=== PATIENT | male | born 1950 | race Caucasian/White ===

== ENCOUNTER 2021-12-23 08:00 | Outpatient (RCR) | payer MEDICARE, SELFPAY | END 2022-03-17 14:31 | disposition home or self-care (01) | PROVIDERS: Visit Provider Orthopaedic Surgery | DX: M25.561 Pain in right knee (principal); R26.9 Unspecified abnormalities of gait and mobility; Z51.89 Encounter for other specified aftercare | CPT/HCPCS: 97110; 97162 ==

== ENCOUNTER 2022-03-20 15:21 | Observation (INO) | payer MEDICARE, SELFPAY ==
[2022-03-20] VITALS (9 sets, daily range): BP systolic 122–134; BP diastolic 60–76; PULSE 69–89; RESP 16–22; TEMP 36.1–36.8; O2SAT 95–99; BMI 29.2; BMI 29.7
--- NOTE | 2022-03-20 16:03 | ED.GENADULT ---
HPI - General Adult General Time Seen by Provider: 16:04 Date Seen: 03/20/22 Chief complaint: Syncope/Fainted Stated complaint: fainting after bowel movment Time Seen by Provider: 03/20/22 15:37 Source: patient and RN notes reviewed Mode of arrival: ambulatory Limitations: no limitations History of Present Illness HPI narrative: Patient is a 71-year-old male that became very faint 10 nearly passed out while on the toilet having a bowel movement today. He is about 2 weeks postoperative left total knee arthroplasty. He is just taking Tylenol ibuprofen for pain. He is using aspirin for prophylaxis. He endorses about 6 months ago he was defecating and straining and had a similar episode. Today he was not straining however. Reports his hemoglobin is low from his knee surgery. He denies any sense of any chest pain with this, no difficulty breathing or shortness of breath. He did not feel any sense of irregular heartbeat or palpitations, not seen as far as arrhythmia. He had no prior abdominal pain. He did not actually pass out all the way, did not fall, did not hit his head, did not injure himself. He does have some ongoing left knee pain and complains of some pain along the medial/upper thigh area. He has had no fevers or chills, no respiratory symptoms. His admit she was concerned maybe about a blood clot in his leg. He has had no diagnosed prior cardiac history, no chronic respiratory issues. He states there is no family history of any cardiac issues. Related Data Home Medications Medication Instructions Recorded Confirmed atenolol 50 mg tablet mg 03/20/22 atorvastatin 40 mg tablet mg 03/20/22 celecoxib 200 mg capsule mg 03/20/22 hydrochlorothiazide 25 mg tablet mg 03/20/22 hydroxyzine pamoate 25 mg capsule mg 03/20/22 omeprazole 20 mg capsule,delayed mg 03/20/22 release Allergies Allergy/AdvReac Type Severity Reaction Status Date / Time Unable to Assess Allergy Verified 03/20/22 15:08 Review of Systems Status of ROS: Reports: 10 or more systems reviewed and unremarkable except as noted in History and below PFSH PFSH Social History Non-prescribed substance use: denies use service: No Exam Const: Vital Signs, click to edit/add: Vital Signs - 24 hr 03/20/22 15:31 03/20/22 16:25 03/20/22 17:30 Temperature 97.0 F L Pulse Rate [Right Pulse Oximeter] 69 71 Respiratory Rate 18 22 Blood Pressure [Ri t Upper Arm] 125/67 122/73 Pulse Oximetry 99 98 99 Oxygen Delivery Me thod Room Air Room Air 03/20/22 18:00 03/20/22 18:30 03/20/22 19:00 Temperature Pulse Rate [Right Pulse Oximeter] 74 87 89 Respiratory Rate 20 20 18 Blood Pressure [Ri t Upper Arm] 127/76 134/69 124/62 Pulse Oximetry 97 98 96 Oxygen Delivery Me thod Documenting provider has reviewed patient's vital signs: yes Common normals: no apparent distress, average body habitus, oriented x3, no limitations, healthy appearing, alert and well nourished General appearance: cooperative, comfortable and well kempt HENMT: Common normals: normocephalic, head/scalp atraumatic, hearing grossly normal bilaterally, external ears normal, external nose normal, nasal mucous membranes and turbinates normal, moist oral mucous membranes, oropharynx normal, dentition normal and gingiva normal Head and scalp: normocephalic and atraumatic Nose: external nose normal and nasal mucous membranes and turbinates normal External ear: external ears normal Eye: Common normals: PERRL, EOMs intact bilaterally, conjunctivae normal and no scleral icterus Conjunctiva: conjunctiva(e) normal Pupil: PERRL Neck & C-Spine: Common normals: full ROM, no lymphadenopathy, supple, no meningeal signs, no JVD and thyroid normal Thyroid: thyroid normal Resp: Common normals: normal respiratory effort, no retractions, no use of accessory muscles and clear to auscultation bilaterally Auscultation: clear to auscultation bilaterally Cardio: Common normals: no JVD, regular rate, regular rhythm, S1 normal heart sound, S2 normal heart sound, no gallops, no clicks and no murmurs Rate: regular rate Rhythm: regular rhythm Heart sounds: S1 normal and S2 normal GI: Common normals: Normal to inspection, nondistended, normoactive bowel sounds present, soft to palpation, non-tender, no hepatosplenomegaly and no masses Palpation: soft and no hepatosplenomegaly Extremity: Other: He has no right lower extremity symptoms, no edema, no calf tenderness. He has some dependent bruising seen on his left leg, some mild edema, questionable Homans sign. He is somewhat tender when I palpate along the medial left upper thigh. Neurovascular is intact of both lower extremities however. Neuro: Common normals: oriented x3, CN's II-XII intact bilaterally, moves all extremities, no focal motor deficits and no sensory deficits noted Sensorium/orientation: alert Meningeal signs: no meningeal signs Speech: speech normal Psych: Appearance: well kempt Course Course Hospital Course: His initial EKG obtained by nursing staff on arrival is reassuring. Will have my cardiac monitoring and pulse oximetry to rule out arrhythmia or hypoxia while here. He is going to get an ultrasound of his left lower extremity to rule out DVT. We will do appropriate labs and certainly a reassure them that we will be checking hemoglobin. Reviewed with he and his that in the differential is vagovagal syncope, certainly could be thromboembolic disease. Is doubtful that this is acute coronary syndrome. Arrhythmias possible 2 and have reviewed with them that if he has ongoing issues in the future, may need further workup with JULIAN patch her ongoing cardiac monitoring. Reviewed that sometimes arrhythmias can be difficult to capture. Will certainly watch while he is here. I agree with his , most pressing thing is to actually rule out thromboembolic disease. He does have a DVT in this left lower extremity, would proceed with chest CT PE protocol. Reevaluation(s) Reevaluation #1: Reviewed with patient and his that his sodium is low, 123. On February 10 it was normal at 135. His creatinine was normal at 0.75. Preoperative hemoglobin was 12.4. He did his surgery outpatient at [facility]. He states when he followed up in the checks hemoglobin postoperatively was in the 9 range. Reviewed with him that it is improving and coming up. I have subsequently spoken with our hospitalist Dr. Rodriguez and she will be assuming care. We are waiting his COVID test to be done. Did start maintenance normal saline to slowly correct his sodium. Time: 17:46 Vital Signs Vital signs: Initial Vital Signs Temperature 97.0 F L 03/20/22 15:31 Temperature Source Temporal Artery Scan 03/20/22 15:31 Pulse Rate 69 03/20/22 15:31 Respiratory Rate 18 03/20/22 15:31 Blood Pressure 125/67 03/20/22 15:31 Blood Pressure Mean 86 03/20/22 15:31 Blood Pressure Position Sitting 03/20/22 15:31 Pulse Oximetry 99 03/20/22 15:31 Oxygen Delivery Method 03/20/22 15:31 Vital Signs Temperature 97.0 F L 03/20/22 15:31 Pulse Rate 69 03/20/22 15:31 Respiratory Rate 18 03/20/22 15:31 Blood Pressure 125/67 03/20/22 15:31 Pulse Oximetry 99 03/20/22 15:31 Oxygen Delivery Method 03/20/22 15:31 Temperature 97.0 F L 03/20/22 15:31 Pulse Rate 89 03/20/22 19:00 Respiratory Rate 18 03/20/22 19:00 Blood Pressure 124/62 03/20/22 19:00 Pulse Oximetry 96 03/20/22 19:00 Oxygen Delivery Method 03/20/22 17:30 Medical Decision Making Lab Data Lab results reviewed: Yes I reviewed the patient's lab results Labs: Lab Results 03/20/22 03/20/22 03/20/22 Range/Units 16:25 16:25 16:25 WBC 8.41 (4.50-11.00) K/uL RBC 3.54 L (4.30-5.90) m/uL Hgb 10.6 L (13.5-17.5) gm/dL Hct 30.7 L (37.0-53.0) % MCV 87 (80-100) fL MCH 30 (26-34) pg MCHC 35 (32-36) gm/dL RDW Coeff of Jacek 17.0 H (11.5-15.5) % Plt Count 305 (140-440) K/uL Neut % (Auto) 78.0 H (42.0-72.0) % Lymph % (Auto) 10.3 L (20-44) % [place] % (Auto) 9.2 (0.0-11.0) % Eos % (Auto) 1.7 (0.0-7.0) % Baso % (Auto) 0.4 (0.0-3.0) % Neut # (Auto) 6.60 (1.7-7.0) K/uL Lymph # (Auto) 0.90 (0.90-2.90) K/uL [place] # (Auto) 0.80 (0.00-0.90) K/UL Eos # (Auto) 0.14 (0.00-0.50) K/uL Baso # (Auto) 0.03 (0.00-0.30) K/uL Abs Immat Gran (auto) 0.03 (0.00-0.30) K/uL Imm/Tot Granulo (auto) 0.4 % D-Dimer Quant (PE/DVT) 7.03 H (0.00-0.50) ug/ml Sodium 123 L* (135-149) mmol/L Potassium 4.3 (3.6-5.1) mmol/L Chloride 90 L (96-114) mmol/L Carbon Dioxide 25 (20-32) mmol/L BUN 22 (7-30) mg/dL Creatinine 0.7 (0.5-1.5) mg/dL Estimated Creat Clear 66.77 Estimated GFR 98 ml/min Glucose 109 (60-115) mg/dL Lactate (0.5-1.9) mmol/L Calcium 8.7 (8.4-10.6) mg/dL Total Bilirubin 0.7 (0.1-1.5) mg/dL AST 21 (12-35) U/L ALT 16 (4-50) U/L Alkaline Phosphatase 79 (40-150) U/L NT-Pro-B Natriuret Pep 169 H (0-125) PG/mL Total Protein 6.6 (6.0-8.3) g/dL Albumin 4.1 (3.3-5.0) g/dL SARS-CoV-2 (PCR) (Negative) POC Troponin I (0.01-0.04) ng/ml 03/20/22 03/20/22 03/20/22 Range/Units 16:25 16:25 17:40 WBC (4.50-11.00) K/uL RBC (4.30-5.90) m/uL Hgb (13.5-17.5) gm/dL Hct (37.0-53.0) % MCV (80-100) fL MCH (26-34) pg MCHC (32-36) gm/dL RDW Coeff of Jacek (11.5-15.5) % Plt Count (140-440) K/uL Neut % (Auto) (42.0-72.0) % Lymph % (Auto) (20-44) % [place] % (Auto) (0.0-11.0) % Eos % (Auto) (0.0-7.0) % Baso % (Auto) (0.0-3.0) % Neut # (Auto) (1.7-7.0) K/uL Lymph # (Auto) (0.90-2.90) K/uL [place] # (Auto) (0.00-0.90) K/UL Eos # (Auto) (0.00-0.50) K/uL Baso # (Auto) (0.00-0.30) K/uL Abs Immat Gran (auto) (0.00-0.30) K/uL Imm/Tot Granulo (auto) % D-Dimer Quant (PE/DVT) (0.00-0.50) ug/ml Sodium (135-149) mmol/L Potassium (3.6-5.1) mmol/L Chloride (96-114) mmol/L Carbon Dioxide (20-32) mmol/L BUN (7-30) mg/dL Creatinine (0.5-1.5) mg/dL Estimated Creat Clear Estimated GFR ml/min Glucose (60-115) mg/dL Lactate 0.9 (0.5-1.9) mmol/L Calcium (8.4-10.6) mg/dL Total Bilirubin (0.1-1.5) mg/dL AST (12-35) U/L ALT (4-50) U/L Alkaline Phosphatase (40-150) U/L NT-Pro-B Natriuret Pep (0-125) PG/mL Total Protein (6.0-8.3) g/dL Albumin (3.3-5.0) g/dL SARS-CoV-2 (PCR) Negative SARS-CoV-2 (Negative) POC Troponin I 0.01 (0.01-0.04) ng/ml Imaging Data Venous US: Attestation: I have reviewed the pertinent imaging results. Radiologist's impression: Patient: KATERIN PERAZA Facility:?[facility] Patient ID:?[id number] Site Patient ID:?[id number]. Site :?1950 Study:?US Extremity Left LEV-03/20/2022 4:57:19 PM Ordering Physician:Zeferino Null Final Report: INDICATION: LEFT LEG PAIN, RECENT TKA TECHNIQUE: Ultrasound venous duplex left lower extremity. COMPARISON: None. FINDINGS: The left common femoral, superficial femoral, deep femoral, popliteal, posterior tibial, and greater saphenous veins are fully compressible normal waveforms. The contralateral right common femoral vein is also compressible with normal waveform. No masses evident. IMPRESSION: Normal ultrasound of the left lower extremity veins. Dictated by: Luis Alfredo Perez MD @ 03/20/2022 17:02:58 (Electronic Signature) Chest x-ray: Attestation: I have reviewed the pertinent imaging results. Radiologist's impression: Patient: KATERIN PERAZA Facility:?[facility] Patient ID:?[id number] Site Patient ID:?[id number]. Site :?1950 Study:?XRay Chest PORTABLE-03/20/2022 5:25:35 PM Ordering Physician:?Marisela Null Final Report: INDICATION: Maintain. TECHNIQUE: Chest 1 views. COMPARISON: None. FINDINGS: Cardiovascular and mediastinum: Normal heart size. Prominent aortic arch shadow and rightward deviation of the trachea. Lungs and pleural spaces: The lungs are clear. No pleural effusion or pneumothorax. Bones and soft tissues: Degenerative changes of the spine and bilateral shoulders. IMPRESSION: No evidence of an acute pulmonary process. Prominent aortic arch shadow. This is likely secondary to technique; however, an aneurysm cannot be excluded. Right lower deviation of the trachea. A mediastinal mass/lymphadenopathy cannot be excluded. Consider CT with contrast for further evaluation of both findings. Dictated by Daniel Vasquez MD @ 03/20/2022 6:06:42 PM (Electronic Signature) CT scan - chest: Attestation: I have reviewed the pertinent imaging results. Radiologist's impression: Patient: KATERIN PERAZA Facility:?[facility] Patient ID:?[id number] Site Patient ID:?[id number]. Site :?1950 Study:?CT Chest w/ 75cc [id number]/3/2022 6:49:33 PM Ordering Physician:Zeferino Null Final Report: INDICATION: Abnormal chest x-ray. TECHNIQUE: CT chest was acquired with 75 mL Isovue 370 IV contrast. Coronal and sagittal reformats were generated. COMPARISON: Chest x-ray from 03/20/2022. FINDINGS: Thyroid: Unremarkable. Thoracic lymph nodes: No enlarged supraclavicular, mediastinal, hilar, or axillary lymph nodes. Mediastinum and esophagus: Prominent mediastinal fat anteriorly and along the right pericardial border. Heart and vasculature: The heart size is normal. Scattered coronary artery calcifications and atherosclerotic calcifications of the thoracic aorta. Normal caliber of the thoracic aorta, without aneurysm. Lungs: Several tiny nodules. Index lesions include: *Right apical nodule measures approximately 3 mm (3/15). *Left upper lobe nodule measures approximately 3 mm (3/27). *Left upper lobe nodule measures approximately 5 mm (3/39). Pleura: Unremarkable. Chest wall: An area of prominent fat density in the right upper back along the erector spinae musculature could be an intramuscular lipoma. Upper abdomen: The liver contains several well-circumscribed hypodensities, which are most suggestive of cysts. Surgically absent gallbladder. The included common bile duct is normal in caliber. Small amount of atherosclerotic calcifications in the visualized abdominal aorta and its branches. Bones: Mild multilevel degenerative changes of the thoracic spine. No aggressive appearing lytic or blastic lesions. IMPRESSION: 1. Abnormality on the chest x-ray likely corresponds to prominent mediastinal fat. No thoracic aortic aneurysm. 2. Several scattered pulmonary micronodules as above. SOCIETY GUIDELINES - SOLID NODULES: SINGLE LOW RISK - nodule less than 6 mm: No routine follow-up. - nodule 6-8 mm: CT at 6-12 months, then consider CT at 18-24 months. - nodule greater than 8 mm: Consider CT at 3 months, PET/CT or tissue sampling. SINGLE HIGH RISK - nodule less than 6 mm: Optional CT at 12 months. - nodule 6-8 mm: CT at 6-12 months, then CT at 18-24 months. - nodule greater than 8 mm: Consider CT at 3 months, PET/CT or tissue sampling. MULTIPLE LOW RISK - nodule less than 6 mm: No routine follow-up. - nodule 6-8 mm: CT at 3-6 months, then consider CT at 18-24 months. - nodule greater than 8 mm: CT at 3-6 months, then consider CT at 18-24 months. MULTIPLE HIGH RISK - nodule less than 6 mm: Optional CT at 12 months. - nodule 6-8 mm: CT at 3-6 months, then at 18-24 months. - nodule greater than 8 mm: CT at 3-6 months, then at 18-24 months. Please note that all CT scans at this facility use dose modulation, iterative reconstruction, and/or weight-based dosing when appropriate to reduce radiation dose to as low as reasonably achievable. Dictated by Neo Juarez MD @ 03/20/2022 7:13:37 PM (Electronic Signature) Note, did not have the opportunity to review patient's chest CT findings prior to transfer to the floor. ECG Data Attestation: I personally reviewed and interpreted this ECG as follows: (Full normal sinus rhythm, 65 beats per minute. No acute abnormality noted, QT corrected 395 milliseconds.) Prior ECG tracings: not available for review Critical Care Time Critical Care Time Critical Care Time: No Discharge Plan Discharge Clinical Impression: Status post left knee replacement, Pre-syncope, Acute hyponatremia Patient Disposition: Admitted As Inpatient Condition: Stable
--- NOTE | 2022-03-20 16:13 | CRLHL7_ITS ---
For Patients: As a result of the Cures Act, medical imaging exams and procedure reports are released immediately into your electronic medical record. You may view this report before your referring provider. If you have questions, please contact your health care provider. INDICATION: LEFT LEG PAIN, RECENT TKA TECHNIQUE: Ultrasound venous duplex left lower extremity. COMPARISON: None. FINDINGS: The left common femoral, superficial femoral, deep femoral, popliteal, posterior tibial, and greater saphenous veins are fully compressible normal waveforms. The contralateral right common femoral vein is also compressible with normal waveform. No masses evident. IMPRESSION: Normal ultrasound of the left lower extremity veins. Dictated by: Luis Alfredo Perez MD @ 03/20/2022 17:02:58 (Electronically Signed)
[2022-03-20 16:38] LABS: Lactate* 0.9 mmol/L (0.5-1.9)
[2022-03-20 16:40] LABS: Basophils Absolute Auto 0.03 K/uL (0.00-0.30); Basophils Percent Auto 0.4 % (0.0-3.0); Eosinophils Absolute Auto 0.14 K/uL (0.00-0.50); Eosinophils Percent Auto 1.7 % (0.0-7.0); Hematocrit 30.7 % (37.0-53.0); Hemoglobin* 10.6 gm/dL (13.5-17.5); Immature Granulocytes Abs Auto 0.03 K/uL (0.00-0.30); Immature Granulocytes Pct Auto 0.4 %; Lymphocytes Percent Auto 10.3 % (20-44); Mean Corpuscular HGB Conc 35 gm/dL (32-36); Mean Corpuscular Hemoglobin 30 pg (26-34); Mean Corpuscular Volume 87 fL (80-100); Monocytes Percent Auto 9.2 % (0.0-11.0); Platelet Count* 305 K/uL (140-440); Red Blood Count 3.54 m/uL (4.30-5.90); Slide Review Reflex No; White Blood Count* 8.41 K/uL (4.50-11.00)
[2022-03-20 16:45] LABS: Troponin, Point-of-Care* 0.01 ng/ml (0.01-0.04)
[2022-03-20 16:58] LABS: Albumin* 4.1 g/dL (3.3-5.0)
[2022-03-20 16:59] LABS: Chloride* 90 mmol/L (96-114); Potassium* 4.3 mmol/L (3.6-5.1)
[2022-03-20 17:01] LABS: Aspartate Amino Transferase* 21 U/L (12-35); Bilirubin Total* 0.7 mg/dL (0.1-1.5); Carbon Dioxide* 25 mmol/L (20-32); Creatinine* 0.7 mg/dL (0.5-1.5); Est. Creatinine Clearance* 66.77; Estimated Glomerular Filt Rate 98 ml/min
[2022-03-20 17:02] LABS: Alanine Aminotransferase* 16 U/L (4-50); Alkaline Phosphatase* 79 U/L (40-150); Blood Urea Nitrogen* 22 mg/dL (7-30); Calcium* 8.7 mg/dL (8.4-10.6); Glucose* 109 mg/dL (60-115); Total Protein* 6.6 g/dL (6.0-8.3)
[2022-03-20 17:03] LABS: Sodium* 123 mmol/L (135-149)
--- NOTE | 2022-03-20 17:05 | CRLHL7_ITS ---
For Patients: As a result of the Cures Act, medical imaging exams and procedure reports are released immediately into your electronic medical record. You may view this report before your referring provider. If you have questions, please contact your health care provider. INDICATION: Maintain. TECHNIQUE: Chest 1 views. COMPARISON: None. FINDINGS: Cardiovascular and mediastinum: Normal heart size. Prominent aortic arch shadow and rightward deviation of the trachea. Lungs and pleural spaces: The lungs are clear. No pleural effusion or pneumothorax. Bones and soft tissues: Degenerative changes of the spine and bilateral shoulders. IMPRESSION: No evidence of an acute pulmonary process. Prominent aortic arch shadow. This is likely secondary to technique; however, an aneurysm cannot be excluded. Right lower deviation of the trachea. A mediastinal mass/lymphadenopathy cannot be excluded. Consider CT with contrast for further evaluation of both findings. Dictated by Daniel Vasquez MD @ 03/20/2022 6:06:42 PM (Electronically Signed)
[2022-03-20 17:10] LABS: D Dimer Quantitative* 7.03 ug/ml (0.00-0.50)
[2022-03-20 17:11] LABS: NT Pro B Type NatriureticPept* 169 PG/mL (0-125)
[2022-03-20] MEDS: 0.9 % SODIUM CH + KCL 20 mEq/L 1,000 ML 100 ML IV (17:30)
--- NOTE | 2022-03-20 18:10 | CRLHL7_ITS ---
For Patients: As a result of the 21st Century Cures Act, medical imaging exams and procedure reports are released immediately into your electronic medical record. You may view this report before your referring provider. If you have questions, please contact your health care provider. INDICATION: Abnormal chest x-ray. TECHNIQUE: CT chest was acquired with 75 mL Isovue 370 IV contrast. Coronal and sagittal reformats were generated. COMPARISON: Chest x-ray from 03/20/2022. FINDINGS: Thyroid: Unremarkable. Thoracic lymph nodes: No enlarged supraclavicular, mediastinal, hilar, or axillary lymph nodes. Mediastinum and esophagus: Prominent mediastinal fat anteriorly and along the right pericardial border. Heart and vasculature: The heart size is normal. Scattered coronary artery calcifications and atherosclerotic calcifications of the thoracic aorta. Normal caliber of the thoracic aorta, without aneurysm. Lungs: Several tiny nodules. Index lesions include: *Right apical nodule measures approximately 3 mm (3/15). *Left upper lobe nodule measures approximately 3 mm (3/27). *Left upper lobe nodule measures approximately 5 mm (3/39). Pleura: Unremarkable. Chest wall: An area of prominent fat density in the right upper back along the erector spinae musculature could be an intramuscular lipoma. Upper abdomen: The liver contains several well-circumscribed hypodensities, which are most suggestive of cysts. Surgically absent gallbladder. The included common bile duct is normal in caliber. Small amount of atherosclerotic calcifications in the visualized abdominal aorta and its branches. Bones: Mild multilevel degenerative changes of the thoracic spine. No aggressive appearing lytic or blastic lesions. IMPRESSION: 1. Abnormality on the chest x-ray likely corresponds to prominent mediastinal fat. No thoracic aortic aneurysm. 2. Several scattered pulmonary micronodules as above. SOCIETY GUIDELINES - SOLID NODULES: SINGLE LOW RISK - nodule less than 6 mm: No routine follow-up. - nodule 6-8 mm: CT at 6-12 months, then consider CT at 18-24 months. - nodule greater than 8 mm: Consider CT at 3 months, PET/CT or tissue sampling. SINGLE HIGH RISK - nodule less than 6 mm: Optional CT at 12 months. - nodule 6-8 mm: CT at 6-12 months, then CT at 18-24 months. - nodule greater than 8 mm: Consider CT at 3 months, PET/CT or tissue sampling. MULTIPLE LOW RISK - nodule less than 6 mm: No routine follow-up. - nodule 6-8 mm: CT at 3-6 months, then consider CT at 18-24 months. - nodule greater than 8 mm: CT at 3-6 months, then consider CT at 18-24 months. MULTIPLE HIGH RISK - nodule less than 6 mm: Optional CT at 12 months. - nodule 6-8 mm: CT at 3-6 months, then at 18-24 months. - nodule greater than 8 mm: CT at 3-6 months, then at 18-24 months. Please note that all CT scans at this facility use dose modulation, iterative reconstruction, and/or weight-based dosing when appropriate to reduce radiation dose to as low as reasonably achievable. Dictated by Neo Juarez MD @ 03/20/2022 7:13:37 PM (Electronically Signed)
[2022-03-20 18:20] LABS: SARS PCR* Negative SARS-CoV-2 (Negative)
--- NOTE | 2022-03-20 19:16 | W.PC.EDHO ---
Primary Language: Preferred Language: Orientation Status: [] Alert & Oriented [] Slight Confusion [] Known Dx Dementia Transfers By: [] Assist of 1 [] Assist of 2 [] Lift Active Medications Generic Name Dose Route Start Last Admin Trade Name Freq PRN Reason Stop Dose Admin Potassium Chloride/Sodium Chloride 1,000 mls @ 100 mls/hr 03/20/22 17:14 03/20/22 17:30 0.9 % Sodium Ch + Kcl 20 Meq/L IV 100 mls/hr .Q10H REY Administration Description of Symptoms ED Triage Present Problem sent from urgent care after having a fainting Description episode following a BM. upon arrival to ED, has no complaints. knee replacement 2 weeks ago IV Insertion/Site Date of IV Line Insertion [ 03/20/22 Right Antecubital] Oxygen Administration Pulse Oximetry 99 Oxygen Delivery Method Room Air
--- NOTE | 2022-03-20 20:35 | PM.IMHP1 ---
Hospitalist- H&P: HPI History of Present Illness Date Seen: 03/20/22 Chief complaint: fainting after bowel movment Narrative: Alexx Balderas is a 71 year old male who presented to the emergency room this morning for presyncopal episode. Patient was on the toilet, having a BM, and became very dizzy and lightheaded. He tried to stand up but quickly fell over; he did not lose consciousness and did not hit his head. He had no associated chest pain, palpitations, or dyspnea. Notes a similar episode approximately 6 months ago, was not seen at that time. Also noted to have some persistent left lower extremity pain from recent L TKA (performed [address] Loyola at [facility]). Since his surgery, he has been pushing fluids and drinking much more water than baseline. ER course and findings: - negative ultrasound for DVT of the left lower extremity - acute hyponatremia (sodium 123, noted to be 135 in January during preoperative H&P) - hemoglobin 10.6 (known history of normocytic anemia hemoglobin was < 10 postoperatively 2 weeks ago) - chest XR exhibited atypical findings around the thoracic aorta, CT recommended - CT exhibited no abnormalities of thoracic aorta, but was + for multiple lung nodules, all less than 6 mm in size. Report and Fleischner criteria below Patient admitted to the hospital for presyncopal episode and hyponatremia. When I see him on the floor, he is feeling well. He has no concerns for the hospitalist staff. Patient is medical and surgical history updated below. Patient has received four COVID vaccines. 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 Catherine and son Jaya would shared decision making duties if Alexx was ever unable to make his own medical decisions. Patient requests full code status, but has no desire to be kept alive artificially for any period of time. Review of Systems Status of ROS: Reports: 10 or more systems reviewed and unremarkable except as noted in History and below [facility] Medical History (Updated 03/20/22 @ 20:42 by Shantel Rodriguez MD) BPH (benign prostatic hyperplasia) Essential hypertension Normocytic anemia Seasonal allergies Surgical History (Updated 03/20/22 @ 20:39 by Shantel Rodriguez MD) History of appendectomy History of cataract extraction with lens replacement Hx of cholecystectomy Status post left knee replacement Status post right knee replacement Social History Highest level of school completed/degree received: some college, no degree Smoking Status: Former smoker How many standard drinks containing alcohol do you have on a typical day: 1 or 2 How often do you have six or more drinks on one occasion: Never AUDIT-C Alcohol total score: 0 Non-prescribed substance use: denies use Caffeine: No service: No Meds Home Medications and Allergies Home Medications Medication Instructions Recorded Confirmed Type atenolol 50 mg tablet 50 mg PO DAILY 03/20/22 03/20/22 History atorvastatin 40 mg tablet 40 mg PO DAILY 03/20/22 03/20/22 History celecoxib 200 mg capsule 200 mg PO Q24H PRN pain 03/20/22 03/20/22 History hydrochlorothiazide 25 mg tablet 25 mg PO DAILY 03/20/22 03/20/22 History hydroxyzine pamoate 25 mg capsule 25 mg PO Q6H PRN 03/20/22 03/20/22 History omeprazole 20 mg capsule,delayed 20 mg PO DAILY PRN GERD 03/20/22 03/20/22 History release tamsulosin 0.4 mg capsule 0.4 mg PO DAILY 03/20/22 03/20/22 History Allergies Allergy/AdvReac Type Severity Reaction Status Date / Time Unable to Assess Allergy Verified 03/20/22 15:08 Exam Narrative: Exam Narrative: GEN: Alert and oriented, nontoxic in appearance, sitting comfortably in bed and answering questions appropriately HEENT: Normal external ears, EOMIs bilaterally, no scleral icterus CV: RRR, No concerning murmurs, rubs, or gallops R: LCTA bilaterally without concerning wheezing, rales, or rhonchi Ext: wwp, no concerning edema Skin: No concerning skin lesions or rashes on exposed skin Neuro: Nonfocal, no resting tremor, gait not observed Psych: Appropriate Const: Vital Signs, click to edit/add: Vital Signs - 24 hr 03/20/22 15:31 03/20/22 16:25 03/20/22 17:30 Temperature 97.0 F L Pulse Rate [Pulse Oximeter] Pulse Rate [Right Pulse Oximeter] 69 71 Respiratory Rate 18 22 Blood Pressure [Le ft Arm] Blood Pressure [Ri ght Upper Arm] 125/67 122/73 Pulse Oximetry 99 98 99 Oxygen Delivery Me thod Room Air Room Air 03/20/22 18:00 03/20/22 18:30 03/20/22 19:00 Temperature Pulse Rate [Pulse Oximeter] Pulse Rate [Right Pulse Oximeter] 74 87 89 Respiratory Rate 20 20 18 Blood Pressure [Le ft Arm] Blood Pressure [Ri ght Upper Arm] 127/76 134/69 124/62 Pulse Oximetry 97 98 96 Oxygen Delivery Me thod 03/20/22 19:43 Temperature 98 F Pulse Rate [Pulse Oximeter] 86 Pulse Rate [Right Pulse Oximeter] Respiratory Rate 18 Blood Pressure [Le ft Arm] 130/60 Blood Pressure [Ri ght Upper Arm] Pulse Oximetry 98 Oxygen Delivery La thod Room Air Hospitalist - H&P: Result Labs Labs: Short CBC 03/20/22 Range/Units 16:25 WBC 8.41 (4.50-11.00) K/uL Hgb 10.6 L (13.5-17.5) gm/dL Hct 30.7 L (37.0-53.0) % Plt Count 305 (140-440) K/uL BMP 03/20/22 16:25 Sodium 123 L* Potassium 4.3 Chloride 90 L Carbon Dioxide 25 BUN 22 Creatinine 0.7 Glucose 109 Calcium 8.7 Liver Function 03/20/22 Range/Units 16:25 Total Bilirubin 0.7 (0.1-1.5) mg/dL AST 21 (12-35) U/L ALT 16 (4-50) U/L Alkaline Phosphatase 79 (40-150) U/L Albumin 4.1 (3.3-5.0) g/dL INDICATION: LEFT LEG PAIN, RECENT TKA TECHNIQUE: Ultrasound venous duplex left lower extremity. COMPARISON: None. FINDINGS: The left common femoral, superficial femoral, deep femoral, popliteal, posterior tibial, and greater saphenous veins are fully compressible normal waveforms.? The contralateral right common femoral vein is also compressible with normal waveform.? No masses evident. IMPRESSION: Normal ultrasound of the left lower extremity veins. Dictated by: Luis Alfredo Perez MD @ 03/20/2022 17:02:58 TECHNIQUE: Chest 1 views. COMPARISON: None. FINDINGS: Cardiovascular and mediastinum:? Normal heart size. Prominent aortic arch shadow and rightward deviation of the trachea. Lungs and pleural spaces:? The lungs are clear. No pleural effusion or pneumothorax. Bones and soft tissues:? Degenerative changes of the spine and bilateral shoulders. IMPRESSION: No evidence of an acute pulmonary process. Prominent aortic arch shadow. This is likely secondary to technique; however, an aneurysm cannot be excluded. Right lower deviation of the trachea. A mediastinal mass/lymphadenopathy cannot be excluded. Consider CT with contrast for further evaluation of both findings. Dictated by Daniel Vasquez MD @ 03/20/2022 6:06:42 PM INDICATION: Abnormal chest x-ray. TECHNIQUE: CT chest was acquired with 75 mL Isovue 370 IV contrast. Coronal and sagittal reformats were generated. COMPARISON: Chest x-ray from 03/20/2022. FINDINGS: Thyroid: Unremarkable. Thoracic lymph nodes: No enlarged supraclavicular, mediastinal, hilar, or axillary lymph nodes. Mediastinum and esophagus: Prominent mediastinal fat anteriorly and along the right pericardial border. Heart and vasculature: The heart size is normal. Scattered coronary artery calcifications and atherosclerotic calcifications of the thoracic aorta. Normal caliber of the thoracic aorta, without aneurysm. Lungs: Several tiny nodules. Index lesions include: *Right apical nodule measures approximately 3 mm (3/15). *Left upper lobe nodule measures approximately 3 mm (3/27). *Left upper lobe nodule measures approximately 5 mm (3/39). Pleura: Unremarkable. Chest wall: An area of prominent fat density in the right upper back along the erector spinae musculature could be an intramuscular lipoma. Upper abdomen: The liver contains several well-circumscribed hypodensities, which are most suggestive of cysts. Surgically absent gallbladder. The included common bile duct is normal in caliber. Small amount of atherosclerotic calcifications in the visualized abdominal aorta and its branches. Bones: Mild multilevel degenerative changes of the thoracic spine. No aggressive appearing lytic or blastic lesions. IMPRESSION: 1. Abnormality on the chest x-ray likely corresponds to prominent mediastinal fat. No thoracic aortic aneurysm. 2. Several scattered pulmonary micronodules as above. SOCIETY GUIDELINES - SOLID NODULES: SINGLE LOW RISK - nodule less than 6 mm: No routine follow-up. - nodule 6-8 mm: CT at 6-12 months, then consider CT at 18-24 months. - nodule greater than 8 mm: Consider CT at 3 months, PET/CT or tissue sampling. SINGLE HIGH RISK - nodule less than 6 mm: Optional CT at 12 months. - nodule 6-8 mm: CT at 6-12 months, then CT at 18-24 months. - nodule greater than 8 mm: Consider CT at 3 months, PET/CT or tissue sampling. MULTIPLE LOW RISK - nodule less than 6 mm: No routine follow-up. - nodule 6-8 mm: CT at 3-6 months, then consider CT at 18-24 months. - nodule greater than 8 mm: CT at 3-6 months, then consider CT at 18-24 months. MULTIPLE HIGH RISK - nodule less than 6 mm: Optional CT at 12 months. - nodule 6-8 mm: CT at 3-6 months, then at 18-24 months. - nodule greater than 8 mm: CT at 3-6 months, then at 18-24 months. Please note that all CT scans at this facility use dose modulation, iterative reconstruction, and/or weight-based dosing when appropriate to reduce radiation dose to as low as reasonably achievable. Dictated by Neo Juarez MD @ 03/20/2022 7:13:37 PM Assessment and Plan Assessment and plan (1) Pre-syncope: Status: Acute Assessment and Plan: - most likely vasovagal given history and reassuring exam, hyponatremia also possibly contributing - will admit for telemetry, monitoring, morning labs (2) Acute hyponatremia: Status: Acute Assessment and Plan: - likely secondary to increased free water intake postoperatively, also iatrogenic from hydrochlorothiazide - fluid restrict to 1800 mL per day replace with low-dose normal saline - hold HCTZ - follow sodium closely to ensure appropriate rate of correction (3) Normocytic anemia: Status: Acute Assessment and Plan: - improving from postoperative state, no evidence of acute bleeding (4) Essential hypertension: Status: Acute Assessment and Plan: (5) Status post left knee replacement: Status: Acute Assessment and Plan: - doing well (6) Multiple lung nodules on CT: Status: Acute Assessment and Plan: - patient informed, given previous smoking history could consider repeat CT scan at 12 months. Will defer to PCP for outpatient follow-up Plan - per above - SCDs and ambulation for prophylaxis, anticipate short hospital stay
[2022-03-20] MEDS: ACETAMINOPHEN 325 MG TABLET 975 MG PO (21:02)
[2022-03-20] MEDS: 0.9 % SODIUM CHLORIDE 1000 ml 1,000 ML 125 ML IV (21:02)
[2022-03-20 22:45] LABS: Chloride* 93 mmol/L (96-114); Sodium* 125 mmol/L (135-149)
[2022-03-20 22:46] LABS: Potassium* 3.9 mmol/L (3.6-5.1)
[2022-03-20 22:48] LABS: Creatinine* 0.8 mg/dL (0.5-1.5); Est. Creatinine Clearance* 66.77; Estimated Glomerular Filt Rate 94 ml/min
[2022-03-20 22:49] LABS: Blood Urea Nitrogen* 20 mg/dL (7-30); Calcium* 8.5 mg/dL (8.4-10.6); Carbon Dioxide* 27 mmol/L (20-32); Glucose* 95 mg/dL (60-115)
[2022-03-21 03:00] VITALS: BP 136/73; PULSE 74; RESP 16; O2SAT 98
[2022-03-21] MEDS: 0.9 % SODIUM CHLORIDE 1000 ml 1,000 ML 125 ML IV (05:03)
[2022-03-21] MEDS: ACETAMINOPHEN 325 MG TABLET 975 MG PO (05:04)
[2022-03-21 07:11] VITALS: PULSE 73
--- NOTE | 2022-03-21 07:14 | PC.NURSE ---
Admission/Shift Note: Pt A&O, pleasant and cooperative. Up SBA with cane/IV pole and tolerating well, denies dizziness and lightheadedness. Left knee surgical incision is well approximated with steri strips intact. PRN Tylenol given x2 for left knee pain with pt reporting adequate relief. Denies SOB, CP, and N/V.
[2022-03-21 07:34] VITALS: BP 143/72; PULSE 75; RESP 18; TEMP 36.1; O2SAT 98
[2022-03-21 07:54] LABS: Basophils Absolute Auto 0.04 K/uL (0.00-0.30); Basophils Percent Auto 0.8 % (0.0-3.0); Eosinophils Absolute Auto 0.16 K/uL (0.00-0.50); Eosinophils Percent Auto 3.1 % (0.0-7.0); Hematocrit 30.3 % (37.0-53.0); Hemoglobin* 10.1 gm/dL (13.5-17.5); Immature Granulocytes Abs Auto 0.02 K/uL (0.00-0.30); Immature Granulocytes Pct Auto 0.4 %; Lymphocytes Percent Auto 19.3 % (20-44); Mean Corpuscular HGB Conc 33 gm/dL (32-36); Mean Corpuscular Hemoglobin 29 pg (26-34); Mean Corpuscular Volume 88 fL (80-100); Neutrophils Percent Auto 65.4 % (42.0-72.0); Platelet Count* 299 K/uL (140-440); RDW Coefficient of Variation % 17.1 % (11.5-15.5); Red Blood Count 3.43 m/uL (4.30-5.90); White Blood Count* 5.19 K/uL (4.50-11.00)
[2022-03-21 07:55] LABS: Slide Review Reflex No
[2022-03-21 08:03] LABS: Chloride* 95 mmol/L (96-114); Potassium* 3.7 mmol/L (3.6-5.1); Sodium* 128 mmol/L (135-149)
[2022-03-21 08:06] LABS: Carbon Dioxide* 27 mmol/L (20-32); Creatinine* 0.6 mg/dL (0.5-1.5); Est. Creatinine Clearance* 66.77; Estimated Glomerular Filt Rate 103 ml/min
[2022-03-21 08:07] LABS: Blood Urea Nitrogen* 14 mg/dL (7-30); Calcium* 8.6 mg/dL (8.4-10.6); Glucose* 98 mg/dL (60-115)
[2022-03-21] MEDS: atenoloL 50 MG TABLET PO (09:02)
[2022-03-21] MEDS: TAMSULOSIN HCL 0.4 MG CAPSULE PO (09:02)
--- NOTE | 2022-03-21 10:22 | PC.NURSE ---
Discharge: Patient pleasant and cooperative. SBA with cane, patient gait stable. Denies dizziness or nausea, pain 4/10 in left knee and stated it was tolerable. Tolerating regular diet. Vitals stable and WNL, IV removed, tele showed NSR. Discharge instructions given, reviewed follow ups and medication orders, questions answered as needed. Discharged via wheelchair @ 0950, home with .
--- NOTE | 2022-03-21 11:44 | P.DS_ITS ---
DS: Providers Provider Date Seen: 03/21/22 Date of admission: 03/20/22 19:38 Primary care physician: Not a Local Provider Admitting Clinician: Shantel Rodriguez MD Attending Physician on discharge: Shantel Rodriguez MD Date of Discharge: 03/21/22 DS: Diagnosis Discharge Diagnosis (1) Pre-syncope: Status: Acute Problem details: Patient had of episode of lightheadedness without loss of consciousness at home. No further symptoms since hospital admission. Feels fine this morning (2) Acute hyponatremia: Status: Acute Problem details: Likely cause for this is patient acknowledging that he is drinking a lot of water since his knee surgery and he is also on hydrochlorothiazide. Sodium on admission was 123. Overnight improved to 128 with normal saline. (3) Multiple lung nodules on CT: Status: Acute Problem details: Multiple 3 mm nodules noted on chest CT. (4) Status post left knee replacement: Status: Acute Problem details: Recent knee replacement. (5) Essential hypertension: Status: Acute (6) Normocytic anemia: Status: Acute Problem details: Anemia possibly related to recent knee surgery. Outpatient followup DS: Summary Hospital Course Hospital Course: 71-year-old male admitted to the hospital after having a near syncopal episode at home. He had no injury and no loss of consciousness. At the time of admission evaluation was unremarkable except for the finding of a sodium of 123. This was thought secondary to the patient's self-reported heavy drinking of water since knee surgery a couple weeks ago as well as his use of hydrochlorothiazide as a blood pressure medicine. He was given normal saline in the hospital and his sodium improved to 128 overnight. Since being in the hospital he reports feeling entirely well and having no other symptoms of illness. Status at Discharge Functional status at discharge: independent ambulation Overall status at discharge: patient is back to baseline Time Spent with Patient Time attestation: Total time spent providing and/or coordinating discharge services: Time spent: Greater than 30 minutes Exam Narrative: Exam Narrative: He is alert appears in no distress. Speech is normal. He is oriented to his circumstances. Breathing is unlabored. Respirations are clear to auscultation. Cardiovascular: S1, S2, regular rate and rhythm. No murmur gallop or rub. Abdomen is soft without tenderness or mass. Extremities without edema. Const: Vital Signs, click to edit/add: Vital Signs - 24 hr 11/03/22 15:31 03/20/22 16:25 03/20/22 17:30 Temperature 97.0 F L Pulse Rate Pulse Rate [Pulse Oximeter] Pulse Rate [Right Pulse Oximeter] 69 71 Respiratory Rate 18 22 Blood Pressure [Le ft Arm] Blood Pressure [Ri ght Upper Arm] 125/67 122/73 Pulse Oximetry 99 98 99 Oxygen Delivery Me thod Room Air Room Air 03/20/22 18:00 03/20/22 18:30 03/20/22 19:00 Temperature Pulse Rate Pulse Rate [Pulse Oximeter] Pulse Rate [Right Pulse Oximeter] 74 87 89 Respiratory Rate 20 20 18 Blood Pressure [Le ft Arm] Blood Pressure [Ri ght Upper Arm] 127/76 134/69 124/62 Pulse Oximetry 97 98 96 Oxygen Delivery Me thod 03/20/22 19:43 03/20/22 20:13 03/20/22 23:00 Temperature 98 F 98.2 F Pulse Rate Pulse Rate [Pulse Oximeter] 86 78 Pulse Rate [Right Pulse Oximeter] Respiratory Rate 18 16 18 Blood Pressure [Le ft Arm] 130/60 129/71 Blood Pressure [Ri ght Upper Arm] Pulse Oximetry 98 98 95 Oxygen Delivery Me thod Room Air Room Air Room Air 03/20/22 23:00 03/21/22 03:00 03/21/22 07:11 Temperature Pulse Rate 71 73 Pulse Rate [Pulse Oximeter] 74 Pulse Rate [Right Pulse Oximeter] Respiratory Rate 16 Blood Pressure [Le ft Arm] 136/73 Blood Pressure [Ri ght Upper Arm] Pulse Oximetry 98 Oxygen Delivery Me thod Room Air 03/21/22 07:34 Temperature 97 F L Pulse Rate Pulse Rate [Pulse Oximeter] 75 Pulse Rate [Right Pulse Oximeter] Respiratory Rate 18 Blood Pressure [Le ft Arm] 143/72 H Blood Pressure [Ri ght Upper Arm] Pulse Oximetry 98 Oxygen Delivery Me thod Room Air Documenting provider has reviewed patient's vital signs: yes DS: Data Data Completed and Pending Labs on day of discharge: Labs from last 24 hours 03/21/22 03/21/22 03/20/22 07:11 07:11 22:29 WBC 5.19 RBC 3.43 L Hgb 10.1 L Hct 30.3 L MCV 88 MCH 29 MCHC 33 RDW Coeff of Jacek 17.1 H Plt Count 299 Neut % (Auto) 65.4 Lymph % (Auto) 19.3 L [place] % (Auto) 11.0 Eos % (Auto) 3.1 Baso % (Auto) 0.8 Neut # (Auto) 3.40 Lymph # (Auto) 1.00 [place] # (Auto) 0.60 Eos # (Auto) 0.16 Baso # (Auto) 0.04 Abs Immat Gran (auto) 0.02 Imm/Tot Granulo (auto) 0.4 D-Dimer Quant (PE/DVT) Sodium 128 L 125 L Potassium 3.7 3.9 Chloride 95 L 93 L Carbon Dioxide 27 27 BUN 14 20 Creatinine 0.6 0.8 Estimated Creat Clear 66.77 66.77 Estimated GFR 103 94 Glucose 98 95 Lactate Calcium 8.6 8.5 Total Bilirubin AST ALT Alkaline Phosphatase NT-Pro-B Natriuret Pep Total Protein Albumin SARS-CoV-2 (PCR) POC Troponin I 03/20/22 03/20/22 03/20/22 17:40 16:25 16:25 WBC RBC Hgb Hct MCV MCH MCHC RDW Coeff of Jacek Plt Count Neut % (Auto) Lymph % (Auto) [place] % (Auto) Eos % (Auto) Baso % (Auto) Neut # (Auto) Lymph # (Auto) [place] # (Auto) Eos # (Auto) Baso # (Auto) Abs Immat Gran (auto) Imm/Tot Granulo (auto) D-Dimer Quant (PE/DVT) Sodium Potassium Chloride Carbon Dioxide BUN Creatinine Estimated Creat Clear Estimated GFR Glucose Lactate 0.9 Calcium Total Bilirubin AST ALT Alkaline Phosphatase NT-Pro-B Natriuret Pep Total Protein Albumin SARS-CoV-2 (PCR) Negative SARS-CoV-2 POC Troponin I 0.01 03/20/22 03/20/22 03/20/22 16:25 16:25 16:25 WBC 8.41 RBC 3.54 L Hgb 10.6 L Hct 30.7 L MCV 87 MCH 30 MCHC 35 RDW Coeff of Jacek 17.0 H Plt Count 305 Neut % (Auto) 78.0 H Lymph % (Auto) 10.3 L [place] % (Auto) 9.2 Eos % (Auto) 1.7 Baso % (Auto) 0.4 Neut # (Auto) 6.60 Lymph # (Auto) 0.90 [place] # (Auto) 0.80 Eos # (Auto) 0.14 Baso # (Auto) 0.03 Abs Immat Gran (auto) 0.03 Imm/Tot Granulo (auto) 0.4 D-Dimer Quant (PE/DVT) 7.03 H Sodium 123 L* Potassium 4.3 Chloride 90 L Carbon Dioxide 25 BUN 22 Creatinine 0.7 Estimated Creat Clear 66.77 Estimated GFR 98 Glucose 109 Lactate Calcium 8.7 Total Bilirubin 0.7 AST 21 ALT 16 Alkaline Phosphatase 79 NT-Pro-B Natriuret Pep 169 H Total Protein 6.6 Albumin 4.1 SARS-CoV-2 (PCR) POC Troponin I Discharge Plan Discharge Disposition: Home, Self-Care Date of Admission: 03/20/22 19:38 Primary Care Provider: Provider,Not a Local Condition: Stable Anticipated Discharge Date/Time: 03/21/22 11:53 Discharge Medications: Continued celecoxib 200 mg capsule 200 mg PO Q24H PRN (Reason: pain) Label Comments: TAKE ONE CAPSULE BY MOUTH ONE TIME DAILY atorvastatin 40 mg tablet 40 mg PO HS Label Comments: TAKE ONE TABLET BY MOUTH ONE TIME DAILY AT BEDTIME omeprazole 20 mg capsule,delayed release(DR/EC) 20 mg PO DAILY PRN (Reason: GERD) Label Comments: TAKE ONE CAPSULE BY MOUTH ONE TIME DAILY atenolol 50 mg tablet 50 mg PO DAILY hydroxyzine pamoate 25 mg capsule 25 mg PO Q6H PRN Label Comments: TAKE 1 OR 2 CAPSULES BY MOUTH EVERY 4 TO 6 HOURS IF NEEDED FOR PAIN/MUSLE SPASMS tamsulosin 0.4 mg capsule 0.4 mg PO DAILY Label Comments: TAKE ONE CAPSULE BY MOUTH ONE TIME DAILY AFTER A MEAL. MAY INCREASE TO 2 CAPSULES DAILY AFTER 2 WEEKS IF NEEDED. Discontinued hydrochlorothiazide 25 mg tablet 25 mg PO DAILY Label Comments: TAKE ONE TABLET BY MOUTH ONE TIME DAILY Discharge Orders: Discharge Order (Routine); Ordered 03/21/22 Ordered By: Kvng Stanley Patient Education: Hyponatremia (GEN), Near Syncope (DC) Additional Instructions: See your doctor in 1 week. He will need a blood test, basic metabolic panel to recheck your sodium and kidney function. Appointment with Dr. Raines March 27 at 10:30 AM Lab draw March 27 at 10:10 AM Discharge Diet: Regular Diet Detail: I recommend a normal diet without restricting your salt or sodium and without drinking extra fluid. You may drink as much as you need to quench y our thirst Follow Up Appointments: Anuj Castañeda MD [Staff Physician] - 03/27/22 10:30 am (Appointment with Dr. Raines, Dr. Castañeda not available.) Provider,Not a Local [Primary Care Provider] - 03/27/22 10:10 am (Lab appointment prior to seeing Dr. Raines.) Forms: [facility] Info Instructions
== END 2022-03-21 09:50 | disposition home or self-care (01) ==
LOC: ED 17:48 → MEDSURG 19:40
PROVIDERS: Admitting Provider Family Medicine; Emergency Provider Family Medicine; Visit Provider Family Medicine
DX: E87.1 Hypo-osmolality and hyponatremia (principal); D64.9 Anemia, unspecified; R91.8 Other nonspecific abnormal finding of lung field; R60.0 Localized edema; R55 Syncope and collapse; I10 Essential (primary) hypertension; N40.0 Benign prostatic hyperplasia without lower urinary tract symptoms; J30.2 Other seasonal allergic rhinitis; Z87.891 Personal history of nicotine dependence; Z90.49 Acquired absence of other specified parts of digestive tract; Z90.89 Acquired absence of other organs; Z96.653 Presence of artificial knee joint, bilateral; I82.402 Acute embolism and thrombosis of unspecified deep veins of left lower extremity
CPT/HCPCS: 36415; 71045; 71260; 80048; 80053; 83605; 83880; 84295; 85025; 85379; 87635; 93971; 94761; 96361; 96374; 99284; 99285; G0378; A9270; J7030; Q9967

== ENCOUNTER 2022-04-11 08:00 | Outpatient (RCR) | payer MEDICARE, SELFPAY | END 2022-07-11 11:10 | disposition home or self-care (01) | PROVIDERS: Visit Provider Orthopaedic Surgery | DX: M25.562 Pain in left knee (principal); Z96.651 Presence of right artificial knee joint; Z51.89 Encounter for other specified aftercare | CPT/HCPCS: 97110; 97162 ==

== ENCOUNTER 2022-08-05 07:54 | Outpatient (CLI) | payer MEDICARE, SELFPAY | END 2022-08-05 07:55 | disposition home or self-care (01) | LOC: INJ CL 07:56 | PROVIDERS: PCP Family Medicine; Visit Provider Family Medicine | DX: M54.16 Radiculopathy, lumbar region (principal); M51.36 Other intervertebral disc degeneration, lumbar region | CPT/HCPCS: 62323; J0702; Q9966 ==

== ENCOUNTER 2022-09-23 07:30 | Outpatient (RCR) | payer MEDICARE, SELFPAY | END 2022-12-19 14:49 | disposition home or self-care (01) | PROVIDERS: PCP Family Medicine; Visit Provider Family Medicine | DX: M54.16 Radiculopathy, lumbar region (principal); Z51.89 Encounter for other specified aftercare | CPT/HCPCS: 97110; 97140; 97162 ==

== ENCOUNTER 2023-01-12 09:26 | Outpatient (CLI) | payer MEDICARE, SELFPAY ==
--- NOTE | 2023-01-12 08:02 | W.ANESCHARGE ---
Anesthesia Charges Start Date/Time Anesthesia Start Date: 01/12/23 Anesthesia Start Time: 11:08 Stop Date/Time Anesthesia Stop Date: 01/12/23 Anesthesia Stop Time: 11:37 Summary Extremes of Age - Over 70 or under 1: MDA
--- NOTE | 2023-01-12 14:59 | P.ANES_ITS ---
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
== END 2023-01-12 09:27 | disposition home or self-care (01) ==
LOC: OP CLINIC 09:26
PROVIDERS: PCP Family Medicine; Visit Provider Internal Medicine Gastroenterology
DX: Z12.11 Encounter for screening for malignant neoplasm of colon (principal); K57.30 Diverticulosis of large intestine without perforation or abscess without bleeding; K63.5 Polyp of colon; K64.8 Other hemorrhoids; Z80.0 Family history of malignant neoplasm of digestive organs
CPT/HCPCS: 00811; 45385; 88305; 99100; J2704

== ENCOUNTER 2023-03-25 07:30 | Day surgery (SDC) | payer MEDICARE, SELFPAY ==
[2023-03-25] VITALS (14 sets, daily range): BP systolic 116–144; BP diastolic 67–94; PULSE 65–81; RESP 16; TEMP 36.3–36.6; O2SAT 92–99; BMI 33.5
--- NOTE | 2023-03-25 08:07 | W.PM.H&PU ---
History & Physical Update History & Physical Update H&P Reviewed and patient assessed: No changes noted
[2023-03-25] MEDS: LACTATED RINGERS 1000 ML 1,000 ML 100 ML IV ×2 (08:10→10:50)
[2023-03-25] MEDS: SODIUM CHLORIDE 0.9 % (FLUSH) 10 ML SYRINGE IVF (08:10)
[2023-03-25] MEDS: MIDAZOLAM HCL 1 MG/ML inj IVP (09:25)
[2023-03-25] MEDS: fentaNYL 100 MCG/2 ML inj IVP (09:25)
--- NOTE | 2023-03-25 09:34 | SUR.PREOP ---
TIME?OUT:?09 PT/Camille CANALES RN/Augusto GRIMES MDA?VERIFICATION?OF?SURGICAL?SITE,?PROCEDURE,?AND?CONSENT OBTAINED?PRIOR?TO?INVASIVE?PROCEDURE.
[2023-03-25] MEDS: CEFAZOLIN 2 GM in 0.9 % SODIUM CHLORIDE Mini-bag 100 ML IVPB (09:59)
--- NOTE | 2023-03-25 10:00 | W.PM.NB ---
Nerve Block Nerve Block Time Seen by Provider: 09:27 Date Seen: 03/25/23 Type of block requested by surgeon for post-operative analgesia: supraclavicular Side: right Time out performed: Yes Verification of patient name: Yes Verification of date of : Yes Site marking: site marked Name of person performing procedure: Román Continuous monitoring Was continuous monitoring of O2 sat, B/P, panel monitor, recorded every 15 minutes?: Yes Procedure Checklist: sterile prep, needles and gloves Ultrasound guided. Images saved: Yes Medications given in 5ml increments after negative aspiration: Ropivicaine %: 0.5 mL: 20 Needle gauge: 22 Decadron (mg): 10 Precedex (mcg): 25 Patient tolerated procedure well: Yes Block Charges Block Charge (with Pro Fee): Brachial Plexus Use of Ultrasound Machine for Block: Yes- US Guidance/pain block
--- NOTE | 2023-03-25 10:00 | W.ANESCHARGE ---
Anesthesia Charges Start Date/Time Anesthesia Start Date: 03/25/23 Anesthesia Start Time: 09:37 Stop Date/Time Anesthesia Stop Date: 03/25/23 Anesthesia Stop Time: 11:33 Summary Extremes of Age - Over 70 or under 1: MDA
[2023-03-25] MEDS: EPINEPHrine 1 MG in SODIUM CHLORIDE IRRIG SOLUTION 3,000 ML 3001 MG IRRIGATION ×5 (10:09→10:55)
--- NOTE | 2023-03-25 10:14 | SUR.OPER ---
PATIENT QUESTIONS ANSWERED SATISFACTORILY PREOPERATIVELY. PATIENT BROUGHT TO OR #2 PER CART FOLLOWING THE BLOCK. Patient positioned supine on OR #2 bed for the intubation.? Perioperative team wrapped the?left arm in a neutral position on the pt. abdomen with the drawsheet.? Right arm elevated on an IV pole in a padded strap. Final approval of positioning by surgeon. CONTINUOUS IRRIGATION OF THE LEFT SHOULDER WITH MIXTURE OF 3000 NACL AND 1mg OF EPINEPHRINE DURING PROCEDURE.
--- NOTE | 2023-03-25 11:13 | PM.ORPRC ---
Procedure Note Date of procedure: 03/25/23 Procedure: PREOPERATIVE DIAGNOSES: 1. Right shoulder rotator cuff [id number] subscapularis with retraction 2. Right shoulder AC degenerative joint disease, primary, moderate-severe 3. Right shoulder long head of biceps partial-thickness tearing 4. Right shoulder labral tearing 5. Right shoulder subacromial impingement syndrome. POSTOPERATIVE DIAGNOSES: 1. Right shoulder rotator cuff [id number] subscapularis with adhesions and retraction to the glenoid 2. Right shoulder AC degenerative joint disease, primary, moderate-severe 3. Right shoulder long head of biceps partial-thickness tearing 4. Right shoulder labral tearing 5. Right shoulder subacromial impingement syndrome. NAME OF OPERATION: 1. Right shoulder arthroscopic rotator cuff repair - full-thickness subscapularis 2. Right shoulder arthroscopic distal clavicle excision 3. Right shoulder arthroscopic extensive glenohumeral debridement including biceps tenotomy 4. Right shoulder arthroscopic bursectomy, subacromial decompression/partial acromioplasty. SURGEON: Sterling Hammonds MD MECHANICAL MAINTENANCE SUPERVISOR: Barry STEWART. Of note, a skilled academic affairs assistant was critical for this case to aide in patient positioning, suture manipulation, arm positioning, instrument positioning, and closure. ANESTHESIA: General plus preoperative supraclavicular block. EBL: 25 mL IMPLANTS: Arthrex 4.75 mm BioComposite SwiveLock suture anchor (x1); COMPLICATIONS: None evident INDICATIONS: The patient is a pleasant, 72-year-old male who has experienced right shoulder pain that has been increasing in recent time. Physical exam and imaging were consistent with a rotator cuff tear. Given their findings, as well as the weakness and pain, and inadequate response to nonoperative management, recommendation was made for surgery. FINDINGS: Exam under anesthesia revealed stable shoulder with excellent range of motion. 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 The Subscapularis tendon was torn and retracted to the glenoid level. It was significantly adhesed to both superficial and deep tissues and had limited excursion. Extensive lysis of adhesions was necessary to help mobilize the subscapularis tissue back to the lesser tuberosity. The long head of the biceps tendon was torn in a moderate grade partial-thickness manner and was completely dislocated out of the bicipital groove. The superior rotator cuff tendon was found to be torn in low-grade partial-thickness manner on the deep surface only. The labrum was degeneratively frayed in the anterior and superior aspects. No loose bodies were identified within the pouch or subscapularis recess. PROCEDURE: Following a thorough discussion of risks, benefits, and alternatives, consent was obtained and the right shoulder was marked. The patient was brought to the operating room and placed supine on the operating table. Induction of anesthesia was completed after preoperative supraclavicular block was administered in preop holding. Appropriate time out was performed identifying proper patient, site, and procedure. 2 g IV Ancef was administered within 1 hour of incision preoperatively. The right upper extremity was prepped and draped in the appropriate sterile fashion using ChloraPrep prep. This was after the patient was positioned in the beach chair with their head in neutral alignment and all bony prominences well padded. The shoulder was insufflated with 20mL of normal saline via an 18g spinal needle from a posterior approach. An 11 blade skin incision allowed a blunt trochar to be inserted and diagnostic arthroscopy to be performed with the findings as noted above. An anterior portal was established with an outside in technique. This allowed the probe to be inserted and confirm the diagnostic arthroscopic findings. The shaver was then inserted and allowed debridement of the anterior and superior labrum as well as the biceps tendon stump after performing a biceps tenotomy with arthroscopic scissors. Finally, debridement was completed with the lesser tuberosity bone, the greater tuberosity region of the deep supraspinatus rotator cuff tissue. Following this, the upper border subscapularis was repaired after debriding the lesser tuberosity with the shaver and [place] cautery. Of note, significant lysis of adhesions was necessary to help free the subscapularis tissue from the both the superficial and deep adhesions and to provide improved tissue excursion. The rotator cuff/subscapularis did need to be fixed with the arm in a neutral to slightly internally rotated position to bring the lesser tuberosity and the tendon back together. Subscapularis was captured in horizontal mattress fashion with a fiber tape suture. The tails were brought to a single anchor in the lesser tuberosity with excellent reapproximation of the subscap tendon and good excursion/tension. Thereafter, the subacromial space was entered. Here, a complete bursectomy and partial acromioplasty/subacromial decompression was performed with a combination of radiofrequency ablator, the shaver, and a 5.5 mm bur. Additionally, distal clavicle excision was performed with the bur. 8 mm of distal clavicle was resected based on the with of our bur. Further inspection of the supraspinatus and infraspinatus rotator cuff was performed. This identified the deep surface/articular sided partial-thickness supraspinatus rotator cuff tearing. This seemed to involve approximately 3 mm of the connection. When probing the rotator cuff from the bursal side, we were unable to have appropriate rate the tissue suggesting that it is integrity was still of decent quality and not needing further repair. The shoulder was placed through range of motion and found to be stable. The rotator cuff was re-probed and found to be stable. Instruments were removed. Excess fluid was drained, closure performed with 4-0 Monocryl and Steri-Strips. Dressings were applied. Sling was applied. The patient was awoken from anesthesia and transferred to the PACU in stable condition. A skilled academic affairs assistant was critical for this case to aid in patient positioning, limb positioning, skill to manipulate arthroscopic instruments and camera, suture management, patient safety, and closure. PLAN: 1. Elbow, forearm, wrist and digit range of motion as tolerated. 2. Encouraged ice. 3. Tramadol or Oxycodone for pain as needed. 4. Sling at all times except for ROM and showering. 5. Follow up with PA visit in 1-2 weeks for wound check. Initiate physical therapy following that visit for passive range of motion. Initiate active assisted range of motion at 6 weeks. May do pendulums now.
--- NOTE | 2023-03-25 11:38 | P.ANES_ITS ---
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
== END 2023-03-25 13:09 | disposition home or self-care (01) ==
PROVIDERS: PCP Family Medicine; Visit Provider Orthopaedic Surgery Sports Medicine
PROC: (CPT 29805; principal; 2023-03-25 10:00)
DX: M75.101 Unspecified rotator cuff tear or rupture of right shoulder, not specified as traumatic (principal); M19.011 Primary osteoarthritis, right shoulder; S46.111A Strain of muscle, fascia and tendon of long head of biceps, right arm, initial encounter; S43.431A Superior glenoid labrum lesion of right shoulder, initial encounter; M75.41 Impingement syndrome of right shoulder; G89.18 Other acute postprocedural pain
CPT/HCPCS: 29827; 29826; 29823; 29824; 29828; 01630; 64415; 76942; 99100; C1713; J0171; J0330; J0690; J1100; J2250; J2371; J2405; J2704; J2795; J3010; J7120; L3670

== ENCOUNTER 2023-06-26 08:15 | Outpatient (RCR) | payer MEDICARE, SELFPAY ==
--- NOTE | 2023-04-14 16:25 | PT.OPEX ---
PT [place] Outpatient Eval PT [facility] Outpatient Eval Start: 04/14/23 16:08 Freq: Status: Active Protocol: Document 04/14/23 16:08 ELVIS (Rec: 04/14/23 16:19 ELVIS [id number]) E-signed By Caitlin Hyatt DPT Physical Therapy Outpatient Evaluation Insurance Information Recert Due Date 07/13/23 Insurance Name Medicare B Medical Diagnosis s/p R RCR 03/25/23 Treating Diagnosis s/p R RCR 03/25/23 with R shoulder pain, impaired R shoulder ROM, impaired R shoulder/UE mobility/strength, currently restricted with R UE sling Subjective Subjective Patient reports having R RCR surgery 03/25/23. He has been using R UE sling but admits to having it off fairly regularly at home. Pain has been minimal. He denies pain this session. He has not been needing pain meds or ice lately. Sleep has been ok. He has been able to sleep in the bed. He is performing elbow/wrist/hand ROM and R shoulder codmans at home. States he is also doing some wrist exercises with a 2# hand wt - CHAN Mobley told him this was ok. CHAN Mason also gave him a couple of other exercises/movements he can do at home and that would be ok. He is R handed. Has been able to do activities with L hand/UE and that is going pretty well. Pain range 0-3/ 10. Date of Surgery (If applicable) 03/25/23 Current Work Status Retired Precautions Treatment Precautions/Contraindications hx R/L TKAs Assessment Assessment/Impression Patient is a 72 year old male s/p R RCR 03/25/23 with R shoulder pain, impaired R shoulder ROM, impaired R shoulder/UE mobility/strength, currently restricted with R UE sling. Pain range 0-3/10. Reviewed R shoulder restrictions, use of sling after surgery. Reviewed elbow /wrist/hand ROM and R shoulder codmans exercises this session. Patient expressed understanding of his restrictions and exercises. Per PT order, patient to start PT at 3 weeks post op. Per PA note, PT for PROM until 6 weeks post op and then progress to AAROM. R shoulder PROM: flex 105 degrees, abd 90 degrees, IR 50 degrees, ER 30 degrees. Patient tolerated PROM well this session. Denies any flare up of pain. Instructed to ice when he gets home. Patient would benefit from skilled PT for pain/sx management, improved R shoulder ROM, improved R shoulder strength/stability, return to full functional use of R shoulder/UE, and establishment of HEP. Plan of Care Rehabilitation Potential Good Physical Therapy Goals 1. Decrease R shoulder pain to less than/equal to 3/10 with daily activities and with the progression of PT activities over the next 6-8 weeks. 2. Improve R shoulder PROM over the next 6-8 weeks to prepare for return to functional use of R shoulder/UE. 3. Improve R shoulder AROM over the next 8-10 weeks for return to functional use of R shoulder/ UE with daily activities. 4. Improve R shoulder/UE strength over the next 10-12 weeks for return to full functional use of R shoulder/UE with daily activities. 5. Patient will be I with HEP within 12 weeks for progression toward above goals, ongoing self management of pain/sx, ongoing self improvements in ROM/strength/function, and for return to full functional use of R shoulder/UE with daily activities. Coordination/Communication With Referral Source Treatment Plan/Direct Interventions Manual Therapy,Therapeutic Exercises Frequency/Duration 2x/week Patient Will Be Discharged From Therapy Completion of LTG(s),Skills Plateau,Independent w/HEP, Independently Progressing Evaluation Billing Untimed Code Treatment Minutes 23 Complexity Moderate Certification Information Initial Certification Date 04/14/23 Ending Certification Date 07/13/23 Provider Signature Shows Agreement With POC & Medical Necessity Physician Signature & Date Requested Please Sign/Date Here Physician Comment/Change : Physician NPI Number #
== END 2023-10-24 23:59 | disposition home or self-care (01) ==
PROVIDERS: PCP Family Medicine; Visit Provider Orthopaedic Surgery Sports Medicine
DX: Z98.890 Other specified postprocedural states (principal); Z51.89 Encounter for other specified aftercare
CPT/HCPCS: 97110; 97162

== ENCOUNTER 2024-08-23 12:37 | Outpatient (CLI) | payer MEDICARE, SELFPAY | END 2024-08-23 12:38 | disposition home or self-care (01) | LOC: INJ CL 12:38 | PROVIDERS: PCP Family Medicine; Visit Provider Family Medicine | DX: M54.16 Radiculopathy, lumbar region (principal); M47.816 Spondylosis without myelopathy or radiculopathy, lumbar region | CPT/HCPCS: 62323; J0702; Q9966 ==

== ENCOUNTER 2025-03-31 07:36 | Outpatient (CLI) | payer MEDICARE, SELFPAY ==
--- NOTE | 2025-03-31 09:09 | P.ANES_ITS ---
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
--- NOTE | 2025-03-31 09:09 | W.ANESCHARGE ---
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
--- NOTE | 2025-03-31 09:15 | P.ANES_ITS ---
Anesthesia Charges Start Date/Time Anesthesia Start Date: 03/31/25 Anesthesia Start Time: 08:48 Stop Date/Time Anesthesia Stop Date: 03/31/25 Anesthesia Stop Time: 09:04 Summary Extremes of Age - Over 70 or under 1: MDA Coding CPT Codes CPT Codes: ANES UPR GI NDSC PX NOS - 57650 ([id number]) P2 - PATIENT W/MILD SYST DISEASE, QK - WOOD BOATBUILDER APPRENTICE 2-4 CNCRNT ANES PROC, QX - CONSULTING SERVICES PROJECT MANAGER SVC W/ MD MED DIRECTION Additional Codes: Summary - Extremes of Age - Over 70 or under 1: CARLITOS ([id number])
--- NOTE | 2025-03-31 09:15 | W.ANESCHARGE ---
Anesthesia Charges Start Date/Time Anesthesia Start Date: 03/31/25 Anesthesia Start Time: 08:48 Stop Date/Time Anesthesia Stop Date: 03/31/25 Anesthesia Stop Time: 09:04 Summary Extremes of Age - Over 70 or under 1: MDA Coding CPT Codes CPT Codes: ANES UPR GI NDSC PX NOS - 94071 ([id number]) P2 - PATIENT W/MILD SYST DISEASE, QK - TOOL HARDENER 2-4 CNCRNT ANES PROC, QX - CHEMICAL CELL CHANGER SVC W/ MD MED DIRECTION Additional Codes: Summary - Extremes of Age - Over 70 or under 1: CARLITOS ([id number])
== END 2025-03-31 07:37 | disposition home or self-care (01) ==
LOC: OP CLINIC 07:37
PROVIDERS: PCP Family Medicine; Visit Provider Internal Medicine Gastroenterology
DX: R13.10 Dysphagia, unspecified (principal); K31.89 Other diseases of stomach and duodenum
CPT/HCPCS: 00731; 43239; 99100; J2405; J2704